=== PATIENT | female | born 2000 | race Caucasian/White ===

== ENCOUNTER 2021-08-24 22:39 | Emergency (ER) | payer OTHER ==
[2021-08-24 23:23] LABS: HEMOGLOBIN 10.6 gm/dl (12.3-15.3); RED BLOOD COUNT 4.13 M/UL (4.00-5.10); WHITE BLOOD COUNT 9.4 K/UL (4.5-11.0)
[2021-08-24 23:42] LABS: BUN/CREATININE RATIO 12 (0-10)
== END 2021-08-25 01:29 | disposition home or self-care (01) ==
LOC: ER1 22:39
PROVIDERS: Physician Assistant
DX: O16.5 Unspecified maternal hypertension, complicating the puerperium (principal); E11.9 Type 2 diabetes mellitus without complications
CPT/HCPCS: 80053; 81001; 83735; 85025; 87086; 93005; 99283